=== PATIENT | female | born 1950 | race African-American/Black ===

== ENCOUNTER 2018-05-09 08:37 | Inpatient (IN) ==
[2018-05-09] MEDS ORDERED: LACTULOSE 20 GM/30 ML UDCUP PO PRN (11:54)
[2018-05-09] MEDS ORDERED: MORPHINE 4 MG/1 ML VIAL IV PRN (11:54)
[2018-05-09 13:05] LABS: Risk Ratio 5.56; VLDL CHOLESTEROL 41.2 MG/DL
[2018-05-09] MEDS ORDERED: hydrALAZINE 20 MG/1 ML VIAL IV PRN (13:14)
[2018-05-09] MEDS: CARVEDILOL 12.5 MG TABLET PO SCH ×2 (13:37→21:17)
[2018-05-09] MEDS: ISOSORBIDE MONONITRATE 30 MG TABLET PO SCH (13:37)
[2018-05-09] MEDS: cloNIDine 0.1 MG TABLET PO SCH ×2 (14:00→21:16)
[2018-05-09 14:12] LABS: Basophils # 0.1 10*3/uL (0.0-0.2); Basophils % 0.9 % (0.0-0.8); Eosinophils % 0.3 % (0.00-10.9); Hematocrit 30.2 VOL% (35.7-47.0); Hemoglobin 9.9 GM/DL (12.0-16.0); Immature Granulocytes % 0.3 %; Immature Granulocytes Absolute 0.02 #; Lymphocytes # 3.3 10*3/uL (1.4-4.0); Mean Corpuscular HGB Conc 32.8 GM/DL (32-36); Mean Corpuscular Hemoglobin 28 PG (27-34); Mean Corpuscular Volume 86.8 FL (87-102); Mean Platelet Volume 11.1 FL (9.6-12.0); Monocytes # 0.6 10*3/uL (0.11-0.8); Monocytes % 7.2 % (1.7-12.7); Neutrophils # 3.9 10*3/uL (1.4-7.4); Neutrophils % 49.3 % (38.7-73.9); Platelet Count 281 T/CUMM (130-400); Red Blood Count 3.48 MC/CUMM (3.8-5.5); White Blood Count 7.9 T/CUMM (4-12)
[2018-05-09 14:25] LABS: CKMB % 2.9 %
[2018-05-09 14:26] LABS: Calcium 8.3 MG/DL (8.5-10.1); Osmolality,Calculated 288.7 MOS/KG (273-304); Potassium 4.2 MMOL/L (3.5-5.1)
[2018-05-09 14:27] LABS: Troponin I 1.73 NG/ML (0.00-0.045)
[2018-05-09] MEDS ORDERED: MAGNESIUM SULF RIDER 2 GM in PREMIX 1 EACH IV PRN (14:40)
[2018-05-09] MEDS ORDERED: POTASSIUM CHLORIDE RIDER 10 MEQ in PREMIX 1 EACH IV PRN (14:40)
[2018-05-09] MEDS: ASPIRIN EC 81 MG TABLET PO SCH (15:30)
[2018-05-09] MEDS: SODIUM CHLORIDE 0.9% 1,000 ML IV SCH (18:00)
[2018-05-09] MEDS: hydrALAZINE 20 MG/1 ML VIAL IV PRN (18:00)
[2018-05-09 18:25] LABS: Apearance,Urine Slightly Hazy (Clear); Bilirubin,Urine Negative (Negative); Blood, Urine Small mg/dL (Negative); Glucose,Urine (UA) 150 mg/dL (Negative); Hyaline Casts,Urine 3 /LPF (0-3); Ketones,Urine Negative (Negative); Mucus,Urine Occasional /LPF (Occasional); Nitrite,Urine Negative (Negative); Protein,Urine >=500 MG/DL; RBC,Urine 1 /HPF (0-4); Squamous Epithelial Cell,Urine Occasional /HPF (0-10); Urine Color Yellow (Yellow); Urine Specific Gravity 1.017 (1.001-1.035); Urine Urobilinogen < 2.0 EU/DL (0.2-1.0); WBC,Urine 4 /HPF (0-6)
[2018-05-09] MEDS: ACETAMINOPHEN 325 MG TABLET PO PRN (19:14)
[2018-05-09] MEDS: MIRTAZAPINE 15 MG TABLET PO SCH (21:16)
[2018-05-09] MEDS: ENOXAPARIN 40 MG/0.4 ML SYRINGE SUBCUT SCH (21:17)
[2018-05-10 06:06] LABS: Basophils # 0.1 10*3/uL (0.0-0.2); Basophils % 1.2 % (0.0-0.8); Eosinophils # 0.1 10*3/uL (0.0-0.87); Eosinophils % 2.1 % (0.00-10.9); Hemoglobin 9.5 GM/DL (12.0-16.0); Immature Granulocytes % 0.2 %; Immature Granulocytes Absolute 0.01 #; Lymphocytes # 3.2 10*3/uL (1.4-4.0); Lymphocytes % 47.9 % (21.3-54.2); Mean Corpuscular HGB Conc 31.7 GM/DL (32-36); Mean Corpuscular Hemoglobin 28 PG (27-34); Mean Corpuscular Volume 87.7 FL (87-102); Mean Platelet Volume 11.1 FL (9.6-12.0); Monocytes # 0.6 10*3/uL (0.11-0.8); Monocytes % 9.6 % (1.7-12.7); Neutrophils # 2.6 10*3/uL (1.4-7.4); Platelet Count 266 T/CUMM (130-400); Red Blood Count 3.42 MC/CUMM (3.8-5.5); Red Cell Distribution Width 13.8 % (9.3-17.3); White Blood Count 6.6 T/CUMM (4-12)
[2018-05-10 06:19] LABS: Calcium 8.3 MG/DL (8.5-10.1); Osmolality,Calculated 292.3 MOS/KG (273-304); Potassium 3.7 MMOL/L (3.5-5.1)
[2018-05-10 06:24] LABS: Albumin 2.6 G/DL (3.4-5.0); Calcium 8.4 MG/DL (8.5-10.1); Osmolality,Calculated 290.4 MOS/KG (273-304); Potassium 3.9 MMOL/L (3.5-5.1)
[2018-05-10] MEDS: SODIUM CHLORIDE 0.9% 1,000 ML IV SCH ×2 (06:34→14:47)
[2018-05-10] MEDS ORDERED: diphenhydrAMINE CAP 25 MG CAPSULE PO ONE (07:00)
[2018-05-10] MEDS ORDERED: DIAZEPAM 5 MG TABLET PO ONE (07:00)
[2018-05-10] MEDS: ASPIRIN EC 81 MG TABLET PO SCH (07:07)
[2018-05-10] MEDS: LEVOTHYROXINE 25 MCG TABLET PO SCH (07:07)
[2018-05-10] MEDS ORDERED: SODIUM BICARBONATE 2.4 MEQ/5 ML VIAL ONE (07:08)
[2018-05-10] MEDS ORDERED: LIDOCAINE 1% 20 ML VIAL ONE (07:08)
[2018-05-10] MEDS ORDERED: HEPARIN/NACL 0.9% 2 UNITS/ML 1,000 ML IV ONE (07:08)
[2018-05-10] MEDS ORDERED: MIDAZOLAM 2 MG/2 ML VIAL ONE ×2 (07:36→07:47)
[2018-05-10] MEDS ORDERED: fentaNYL 100 MCG/2 ML VIAL ONE (07:36)
[2018-05-10] MEDS ORDERED: METOPROLOL TARTRATE 5 MG/5 ML VIAL IV ONE (08:05)
[2018-05-10] MEDS ORDERED: hydrALAZINE 20 MG/1 ML VIAL ONE (08:11)
[2018-05-10] MEDS ORDERED: ACETAMINOPHEN/CODEINE 300-30 MG TABLET PO PRN (08:44)
[2018-05-10] MEDS ORDERED: NITROGLYCERIN SL 0.4 MG TABLET SL PRN (08:44)
[2018-05-10] MEDS ORDERED: ZALEPLON 5 MG CAPSULE PO PRN (08:44)
[2018-05-10] MEDS ORDERED: MELOXICAM 7.5 MG TABLET PO SCH (09:00)
[2018-05-10] MEDS ORDERED: LOSARTAN/HCTZ 50-12.5 MG TABLET PO SCH (09:00)
[2018-05-10] MEDS: INSULIN GLARGINE 100 UNIT/ML SUBCUT SCH (09:53)
[2018-05-10] MEDS: cloNIDine 0.1 MG TABLET PO SCH ×3 (11:28→21:37)
[2018-05-10] MEDS: ATORVASTATIN 80 MG TABLET PO SCH (11:28)
[2018-05-10] MEDS: CARVEDILOL 25 MG TABLET PO SCH ×2 (11:28→21:37)
[2018-05-10] MEDS: ESCITALOPRAM 10 MG TABLET PO SCH (11:28)
[2018-05-10] MEDS: EZETIMIBE 10 MG TABLET PO SCH (11:28)
[2018-05-10] MEDS: CLOPIDOGREL 75 MG TABLET PO SCH (11:28)
[2018-05-10] MEDS: ISOSORBIDE MONONITRATE 30 MG TABLET PO SCH (11:29)
[2018-05-10] MEDS ORDERED: POTASSIUM CHLORIDE 20 MEQ TABLET PO PRN (12:26)
[2018-05-10] MEDS: ONDANSETRON 4 MG/2 ML VIAL IV PRN ×2 (15:32→21:41)
[2018-05-10] MEDS: ACETAMINOPHEN 325 MG TABLET PO PRN ×2 (17:38→21:37)
[2018-05-10] MEDS: MIRTAZAPINE 15 MG TABLET PO SCH (21:36)
[2018-05-10] MEDS: ENOXAPARIN 40 MG/0.4 ML SYRINGE SUBCUT SCH (21:41)
[2018-05-10] MEDS: hydrALAZINE 20 MG/1 ML VIAL IV PRN (23:30)
[2018-05-11 01:01] LABS: Basophils % 0.4 % (0.0-0.8); Hemoglobin 10.2 GM/DL (12.0-16.0); Immature Granulocytes % 0.4 %; Immature Granulocytes Absolute 0.04 #; Lymphocytes % 9.2 % (21.3-54.2); Mean Corpuscular HGB Conc 32.9 GM/DL (32-36); Mean Corpuscular Hemoglobin 28 PG (27-34); Mean Corpuscular Volume 86.1 FL (87-102); Mean Platelet Volume 10.7 FL (9.6-12.0); Monocytes # 0.2 10*3/uL (0.11-0.8); Monocytes % 1.4 % (1.7-12.7); Neutrophils # 9.3 10*3/uL (1.4-7.4); Neutrophils % 88.6 % (38.7-73.9); Platelet Count 273 T/CUMM (130-400); Red Cell Distribution Width 13.4 % (9.3-17.3); White Blood Count 10.5 T/CUMM (4-12)
[2018-05-11] MEDS: cloNIDine 0.3 MG/24 HR PATCH TRANSDERM SCH ×2 (01:21→09:14)
[2018-05-11 01:22] LABS: Calcium 8.6 MG/DL (8.5-10.1); Osmolality,Calculated 290.7 MOS/KG (273-304); Potassium 4.4 MMOL/L (3.5-5.1)
[2018-05-11 01:41] LABS: Calcium 8.5 MG/DL (8.5-10.1); Osmolality,Calculated 290.7 MOS/KG (273-304); Potassium 4.3 MMOL/L (3.5-5.1)
[2018-05-11] MEDS ORDERED: LABETALOL 20 MG/4 ML SYRINGE IV ONE (02:09)
[2018-05-11] MEDS: LEVOTHYROXINE 25 MCG TABLET PO SCH (06:54)
[2018-05-11] MEDS ORDERED: SODIUM CHLORIDE 0.9% 500 ML IV ONE (08:17)
[2018-05-11] MEDS: cloNIDine 0.1 MG TABLET PO SCH ×2 (09:09→12:48)
[2018-05-11] MEDS: ISOSORBIDE MONONITRATE 30 MG TABLET PO SCH ×2 (09:10→12:49)
[2018-05-11] MEDS: CARVEDILOL 25 MG TABLET PO SCH ×2 (09:10→12:49)
[2018-05-11] MEDS: INSULIN GLARGINE 100 UNIT/ML SUBCUT SCH (09:12)
[2018-05-11] MEDS: ATORVASTATIN 80 MG TABLET PO SCH ×2 (09:15→12:47)
[2018-05-11] MEDS: EZETIMIBE 10 MG TABLET PO SCH ×2 (09:15→12:48)
[2018-05-11] MEDS: ESCITALOPRAM 10 MG TABLET PO SCH ×2 (09:15→12:48)
[2018-05-11] MEDS: CLOPIDOGREL 75 MG TABLET PO SCH ×2 (09:15→12:49)
[2018-05-11] MEDS: ASPIRIN EC 81 MG TABLET PO SCH ×2 (09:15→12:49)
[2018-05-11] MEDS ORDERED: DEXTROSE 50% 25 GM/50 ML SYRINGE IV PRN (12:05)
[2018-05-11] MEDS ORDERED: GLUCAGON 1 MG VIAL IM PRN (12:05)
[2018-05-11 12:07] VITALS: BP 168/75
[2018-05-11] MEDS: ONDANSETRON 4 MG/2 ML VIAL IV PRN (13:15)
[2018-05-11] MEDS ORDERED: INSULIN LISPRO 100 UNIT/ML SUBCUT SCH (16:30)
== END 2018-05-11 15:40 | disposition home or self-care (01) | DRG 282 ==
LOC: N.TELEN → SUATTDRO 11:54
PROVIDERS: ADMIT Internal Medicine; ATTEND Internal Medicine
PROC: CLCCHCL (ICD-10-PCS; 2018-05-10 07:45)

== ENCOUNTER 2019-07-13 12:30 | Inpatient (IN) ==
[2019-07-13 14:38] LABS: Basophils # 0.1 10*3/uL (0.0-0.2); Basophils % 0.5 % (0.0-0.8); Eosinophils # 0.1 10*3/uL (0.0-0.87); Hematocrit 27.3 VOL% (35.7-47.0); Hemoglobin 8.9 GM/DL (12.0-16.0); Immature Granulocytes % 0.6 %; Immature Granulocytes Absolute 0.09 #; Lymphocytes # 2.2 10*3/uL (1.4-4.0); Lymphocytes % 15.4 % (21.3-54.2); Mean Corpuscular HGB Conc 32.6 GM/DL (32-36); Mean Corpuscular Volume 87.2 FL (87-102); Mean Platelet Volume 11.1 FL (9.6-12.0); Monocytes % 6.4 % (1.7-12.7); Neutrophils % 76.1 % (38.7-73.9); Platelet Count 372 T/CUMM (130-400); Red Blood Count 3.13 MC/CUMM (3.8-5.5); Red Cell Distribution Width 13.3 % (9.3-17.3)
[2019-07-13 15:03] LABS: Alanine Aminotransferase 10 U/L (13-56); Albumin 2.2 G/DL (3.4-5.0); Alkaline Phosphatase 151 U/L (45-117); Aspartate Amino Transferase 15 U/L (0-37); Bilirubin,Total < 0.39 MG/DL (0.2-1.0); Blood Urea Nitrogen 17 MG/DL (7-18); Estimated Glom Filtration Rate 35 ML/MIN; Glucose 94 MG/DL (74-106); Osmolality,Calculated 271.1 MOS/KG (273-304); Total Protein 7.7 G/DL (6.4-8.3)
[2019-07-13] MEDS ORDERED: SODIUM CHLORIDE 0.9% 500 ML IV STA (15:29)
[2019-07-13] MEDS ORDERED: CLINDAMYCIN INJ 900 MG in PREMIX 1 EACH IV ONE (15:51)
[2019-07-13] MEDS ORDERED: ONDANSETRON 4 MG/2 ML VIAL IV PRN ×2 (16:18→18:20)
[2019-07-13] MEDS ORDERED: GLUCAGON 1 MG VIAL IM PRN (16:18)
[2019-07-13] MEDS ORDERED: DEXTROSE 10% 250 ML BAG IV PRN (16:18)
[2019-07-13] MEDS ORDERED: VANCOMYCIN INJ 1,000 MG in SODIUM CHLORIDE 0.9% 250 ML IV SCH (16:30)
[2019-07-13] MEDS ORDERED: CLINDAMYCIN INJ 50 ML IV ONE (16:37)
[2019-07-13] MEDS ORDERED: MIDAZOLAM 2 MG/2 ML VIAL ONE (17:48)
[2019-07-13] MEDS ORDERED: LIDOCAINE 2% 5 ML VIAL ONE (17:48)
[2019-07-13] MEDS ORDERED: propofoL 200 MG/20 ML VIAL IV ONE (17:48)
[2019-07-13] MEDS ORDERED: fentaNYL 100 MCG/2 ML VIAL ONE (17:48)
[2019-07-13] MEDS ORDERED: hydrALAZINE 20 MG/1 ML VIAL ONE (17:49)
[2019-07-13] MEDS ORDERED: HYDROmorphone 2 MG/1 ML VIAL ONE (18:18)
[2019-07-13] MEDS ORDERED: HYDROmorphone 2 MG/1 ML VIAL IV PRN (18:20)
[2019-07-13] MEDS ORDERED: LABETALOL 20 MG/4 ML SYRINGE IV STA (18:30)
[2019-07-13] MEDS ORDERED: ACETAMINOPHEN 325 MG TABLET PO PRN (19:22)
[2019-07-13] MEDS: INSULIN REGULAR 100 UNIT/ML SUBCUT SCH ×2 (21:03→21:04)
[2019-07-13] MEDS: VANCOMYCIN INJ 1,500 MG in SODIUM CHLORIDE 0.9% 500 ML IV SCH (21:37)
[2019-07-13] MEDS: HYDROmorphone 2 MG/1 ML VIAL IV PRN (23:28)
[2019-07-14] MEDS: diphenhydrAMINE CAP 25 MG CAPSULE PO PRN (03:17)
[2019-07-14 07:01] LABS: Basophils # 0.1 10*3/uL (0.0-0.2); Basophils % 0.4 % (0.0-0.8); Eosinophils # 0.2 10*3/uL (0.0-0.87); Eosinophils % 1.5 % (0.00-10.9); Hematocrit 23.8 VOL% (35.7-47.0); Hemoglobin 7.8 GM/DL (12.0-16.0); Immature Granulocytes % 0.4 %; Immature Granulocytes Absolute 0.05 #; Lymphocytes # 2.1 10*3/uL (1.4-4.0); Mean Corpuscular HGB Conc 32.8 GM/DL (32-36); Mean Corpuscular Volume 86.9 FL (87-102); Mean Platelet Volume 11.1 FL (9.6-12.0); Monocytes % 7.2 % (1.7-12.7); Neutrophils % 71.5 % (38.7-73.9); Platelet Count 305 T/CUMM (130-400); Red Blood Count 2.74 MC/CUMM (3.8-5.5); Red Cell Distribution Width 13.7 % (9.3-17.3); White Blood Count 11.2 T/CUMM (4-12)
[2019-07-14 07:25] LABS: Alanine Aminotransferase 9 U/L (13-56); Albumin 1.8 G/DL (3.4-5.0); Alkaline Phosphatase 137 U/L (45-117); Aspartate Amino Transferase 14 U/L (0-37); Bilirubin,Total < 0.39 MG/DL (0.2-1.0); Blood Urea Nitrogen 17 MG/DL (7-18); Calcium 8.4 MG/DL (8.5-10.1); Estimated Glom Filtration Rate 36 ML/MIN; Glucose 76 MG/DL (74-106); Total Protein 6.8 G/DL (6.4-8.3)
[2019-07-14] MEDS: INSULIN REGULAR 100 UNIT/ML SUBCUT SCH ×4 (08:53→20:30)
[2019-07-14] MEDS: PANTOPRAZOLE 40 MG TABLET PO SCH (10:53)
[2019-07-14] MEDS: CLOPIDOGREL 75 MG TABLET PO SCH (13:17)
[2019-07-14] MEDS: ESCITALOPRAM 10 MG TABLET PO SCH (13:17)
[2019-07-14] MEDS: LATANOPROST 0.005% OPH SOLN 2.5 ML BOTTLE BOTH EYES SCH (22:24)
[2019-07-15] MEDS: HYDROmorphone 2 MG/1 ML VIAL IV PRN ×2 (00:09→15:07)
[2019-07-15 04:45] LABS: Basophils # 0.1 10*3/uL (0.0-0.2); Basophils % 0.5 % (0.0-0.8); Eosinophils # 0.2 10*3/uL (0.0-0.87); Eosinophils % 1.8 % (0.00-10.9); Hematocrit 23.4 VOL% (35.7-47.0); Hemoglobin 7.3 GM/DL (12.0-16.0); Immature Granulocytes % 0.4 %; Immature Granulocytes Absolute 0.04 #; Lymphocytes # 2.6 10*3/uL (1.4-4.0); Lymphocytes % 27.2 % (21.3-54.2); Mean Corpuscular HGB Conc 31.2 GM/DL (32-36); Mean Corpuscular Volume 88.6 FL (87-102); Mean Platelet Volume 12.1 FL (9.6-12.0); Monocytes % 6.6 % (1.7-12.7); Neutrophils % 63.5 % (38.7-73.9); Platelet Count 276 T/CUMM (130-400); Red Blood Count 2.64 MC/CUMM (3.8-5.5); Red Cell Distribution Width 13.6 % (9.3-17.3); White Blood Count 9.5 T/CUMM (4-12)
[2019-07-15 05:11] LABS: Calcium 8.5 MG/DL (8.5-10.1)
[2019-07-15 06:49] LABS: Hypochromasia 1+; Platelet Estimate Normal
[2019-07-15] MEDS: INSULIN REGULAR 100 UNIT/ML SUBCUT SCH ×4 (09:01→20:40)
[2019-07-15] MEDS: CLOPIDOGREL 75 MG TABLET PO SCH (09:02)
[2019-07-15] MEDS: LEVOTHYROXINE 50 MCG TABLET PO SCH (09:02)
[2019-07-15] MEDS: ESCITALOPRAM 10 MG TABLET PO SCH (09:02)
[2019-07-15] MEDS: VANCOMYCIN INJ 1,500 MG in SODIUM CHLORIDE 0.9% 500 ML IV SCH (09:03)
[2019-07-15] MEDS: PANTOPRAZOLE 40 MG TABLET PO SCH (09:03)
[2019-07-15] MEDS ORDERED: CLINDAMYCIN INJ 900 MG in PREMIX 1 EACH IV ONE (09:25)
[2019-07-15] MEDS: LATANOPROST 0.005% OPH SOLN 2.5 ML BOTTLE BOTH EYES SCH (20:40)
[2019-07-16 05:13] LABS: Basophils # 0.1 10*3/uL (0.0-0.2); Basophils % 0.8 % (0.0-0.8); Eosinophils # 0.2 10*3/uL (0.0-0.87); Eosinophils % 2.5 % (0.00-10.9); Hematocrit 26.6 VOL% (35.7-47.0); Hemoglobin 8.5 GM/DL (12.0-16.0); Immature Granulocytes % 0.4 %; Immature Granulocytes Absolute 0.04 #; Lymphocytes # 2.5 10*3/uL (1.4-4.0); Mean Corpuscular Volume 87.8 FL (87-102); Mean Platelet Volume 11.1 FL (9.6-12.0); Monocytes % 6.7 % (1.7-12.7); Neutrophils % 61.6 % (38.7-73.9); Platelet Count 368 T/CUMM (130-400); Red Blood Count 3.03 MC/CUMM (3.8-5.5); Red Cell Distribution Width 13.4 % (9.3-17.3); White Blood Count 8.9 T/CUMM (4-12)
[2019-07-16 05:32] LABS: Calcium 8.8 MG/DL (8.5-10.1); Osmolality,Calculated 273.8 MOS/KG (273-304)
[2019-07-16] MEDS ORDERED: CLINDAMYCIN INJ 50 ML IV ONE (07:08)
[2019-07-16] MEDS ORDERED: LIDOCAINE 1% 20 ML VIAL ONE (07:08)
[2019-07-16] MEDS ORDERED: LACTATED RINGERS 1,000 ML IV SCH (07:30)
[2019-07-16] MEDS ORDERED: propofoL 200 MG/20 ML VIAL IV ONE (07:35)
[2019-07-16] MEDS ORDERED: DEXMEDETOMIDINE 200 MCG/2 ML VIAL ONE (07:36)
[2019-07-16] MEDS ORDERED: fentaNYL 100 MCG/2 ML VIAL ONE (07:36)
[2019-07-16] MEDS ORDERED: LIDOCAINE 2% 5 ML VIAL ONE (07:36)
[2019-07-16] MEDS ORDERED: MIDAZOLAM 2 MG/2 ML VIAL ONE (07:36)
[2019-07-16] MEDS: INSULIN REGULAR 100 UNIT/ML SUBCUT SCH ×4 (08:45→21:48)
[2019-07-16] MEDS ORDERED: GLUCAGON 1 MG VIAL IM PRN (09:28)
[2019-07-16] MEDS ORDERED: DEXTROSE 50% 25 GM/50 ML VIAL IV PRN (09:28)
[2019-07-16] MEDS: PANTOPRAZOLE 40 MG TABLET PO SCH (09:31)
[2019-07-16] MEDS: CLOPIDOGREL 75 MG TABLET PO SCH (09:32)
[2019-07-16] MEDS: ESCITALOPRAM 10 MG TABLET PO SCH (09:32)
[2019-07-16] MEDS: LEVOTHYROXINE 50 MCG TABLET PO SCH (09:32)
[2019-07-16] MEDS: HYDROmorphone 2 MG/1 ML VIAL IV PRN (10:50)
[2019-07-16] MEDS: LATANOPROST 0.005% OPH SOLN 2.5 ML BOTTLE BOTH EYES SCH (21:48)
[2019-07-16] MEDS: VANCOMYCIN INJ 1,500 MG in SODIUM CHLORIDE 0.9% 500 ML IV SCH (21:49)
[2019-07-16] MEDS: diphenhydrAMINE CAP 25 MG CAPSULE PO PRN (21:49)
[2019-07-17 05:23] LABS: Basophils # 0.1 10*3/uL (0.0-0.2); Basophils % 0.8 % (0.0-0.8); Eosinophils # 0.2 10*3/uL (0.0-0.87); Hematocrit 25.9 VOL% (35.7-47.0); Hemoglobin 8.5 GM/DL (12.0-16.0); Immature Granulocytes % 0.3 %; Immature Granulocytes Absolute 0.03 #; Lymphocytes # 2.4 10*3/uL (1.4-4.0); Lymphocytes % 25.2 % (21.3-54.2); Mean Corpuscular HGB Conc 32.8 GM/DL (32-36); Mean Corpuscular Volume 86.3 FL (87-102); Mean Platelet Volume 11.4 FL (9.6-12.0); Monocytes % 6.4 % (1.7-12.7); Neutrophils % 65.3 % (38.7-73.9); Platelet Count 342 T/CUMM (130-400); Red Cell Distribution Width 13.7 % (9.3-17.3); White Blood Count 9.7 T/CUMM (4-12)
[2019-07-17] MEDS: HYDROmorphone 2 MG/1 ML VIAL IV PRN (05:31)
[2019-07-17 05:38] LABS: Bilirubin,Total 0.6 MG/DL (0.2-1.0); Calcium 8.2 MG/DL (8.5-10.1); Free T4 (Free Thyroxine) 1.04 NG/DL (0.76-1.46); Osmolality,Calculated 277.5 MOS/KG (273-304); Risk Ratio 4.27; Thyroid Stimulating Hormone 1.48 uIU/ml (0.358-3.74); Total Protein 7.2 G/DL (6.4-8.3); VLDL CHOLESTEROL 23.8 MG/DL
[2019-07-17] MEDS: LEVOTHYROXINE 50 MCG TABLET PO SCH (06:31)
[2019-07-17] MEDS: ESCITALOPRAM 10 MG TABLET PO SCH (08:11)
[2019-07-17] MEDS: PANTOPRAZOLE 40 MG TABLET PO SCH (08:12)
[2019-07-17] MEDS: INSULIN REGULAR 100 UNIT/ML SUBCUT SCH ×4 (08:12→23:16)
[2019-07-17] MEDS: CLOPIDOGREL 75 MG TABLET PO SCH (08:12)
[2019-07-17] MEDS: SODIUM HYPOCHLORITE 0.25% IRRIG 473 ML BOTTLE TOP SCH (15:27)
[2019-07-17] MEDS: LATANOPROST 0.005% OPH SOLN 2.5 ML BOTTLE BOTH EYES SCH (23:19)
[2019-07-18] MEDS: HYDROmorphone 2 MG/1 ML VIAL IV PRN (00:45)
[2019-07-18 05:53] LABS: Basophils # 0.1 10*3/uL (0.0-0.2); Basophils % 0.9 % (0.0-0.8); Eosinophils # 0.1 10*3/uL (0.0-0.87); Eosinophils % 1.7 % (0.00-10.9); Hematocrit 23.6 VOL% (35.7-47.0); Hemoglobin 7.7 GM/DL (12.0-16.0); Immature Granulocytes % 0.4 %; Immature Granulocytes Absolute 0.03 #; Lymphocytes # 2.4 10*3/uL (1.4-4.0); Lymphocytes % 29.3 % (21.3-54.2); Mean Corpuscular HGB Conc 32.6 GM/DL (32-36); Mean Corpuscular Volume 87.4 FL (87-102); Mean Platelet Volume 11.4 FL (9.6-12.0); Monocytes % 7.7 % (1.7-12.7); Platelet Count 329 T/CUMM (130-400); White Blood Count 8.2 T/CUMM (4-12)
[2019-07-18 06:23] LABS: Alanine Aminotransferase 12 U/L (13-56); Alkaline Phosphatase 147 U/L (45-117); Aspartate Amino Transferase 19 U/L (0-37); Bilirubin,Total < 0.39 MG/DL (0.2-1.0); Blood Urea Nitrogen 17 MG/DL (7-18); Calcium 8.5 MG/DL (8.5-10.1); Estimated Glom Filtration Rate 31 ML/MIN; Glucose 87 MG/DL (74-106); Osmolality,Calculated 281.3 MOS/KG (273-304)
[2019-07-18] MEDS ORDERED: IRON SUCROSE 300 MG in SODIUM CHLORIDE 0.9% 100 ML IV ONE (07:02)
[2019-07-18] MEDS ORDERED: SODIUM CHLORIDE 0.9% 1,000 ML IV PRN (07:03)
[2019-07-18] MEDS: LEVOTHYROXINE 50 MCG TABLET PO SCH (07:14)
[2019-07-18] MEDS: INSULIN REGULAR 100 UNIT/ML SUBCUT SCH ×2 (09:03→12:30)
[2019-07-18] MEDS: PANTOPRAZOLE 40 MG TABLET PO SCH (09:06)
[2019-07-18] MEDS: CLOPIDOGREL 75 MG TABLET PO SCH (09:07)
[2019-07-18] MEDS: ESCITALOPRAM 10 MG TABLET PO SCH (09:08)
[2019-07-18] MEDS: SODIUM HYPOCHLORITE 0.25% IRRIG 473 ML BOTTLE TOP SCH (09:08)
[2019-07-18 11:50] LABS: Hematocrit 27.2 VOL% (35.7-47.0)
[2019-07-18 12:28] VITALS: BP 181/67
== END 2019-07-18 13:38 | disposition home health service (06) | DRG 629 ==
LOC: N.ED 12:30 → SUATTDRO 15:46 → N.EDINP 15:46 → N.3E 19:17
PROVIDERS: ADMIT Internal Medicine; ATTEND Internal Medicine

== ENCOUNTER 2019-11-24 12:36 | Inpatient (IN) ==
[2019-11-24] MEDS ORDERED: LABETALOL 20 MG/4 ML SYRINGE IV ONE (13:01)
[2019-11-24] MEDS ORDERED: LABETALOL 100 MG/20 ML VIAL IV STA (13:21)
[2019-11-24 13:40] LABS: Basophils % 0.4 % (0.0-0.8); Eosinophils % 0.3 % (0.00-10.9); Hematocrit 31.1 VOL% (35.7-47.0); Hemoglobin 9.1 GM/DL (12.0-16.0); Immature Granulocytes % 0.7 %; Immature Granulocytes Absolute 0.06 #; Lymphocytes # 0.3 10*3/uL (1.4-4.0); Lymphocytes % 3.7 % (21.3-54.2); Mean Corpuscular HGB Conc 29.3 GM/DL (32-36); Mean Corpuscular Volume 87.6 FL (87-102); Mean Platelet Volume 10.5 FL (9.6-12.0); Monocytes % 2.6 % (1.7-12.7); Neutrophils % 92.3 % (38.7-73.9); Platelet Count 233 T/CUMM (130-400); Red Blood Count 3.55 MC/CUMM (3.8-5.5); Red Cell Distribution Width 13.3 % (9.3-17.3); White Blood Count 9.1 T/CUMM (4-12)
[2019-11-24 13:52] LABS: Calcium 8.4 MG/DL (8.5-10.1); Osmolality,Calculated 281.2 MOS/KG (273-304)
[2019-11-24 14:03] LABS: PT Patient Result 10.6 SECS (9.8-11.9); Partial Thromboplastin Time 21.1 SECS (23.9-33.8)
[2019-11-24 14:07] LABS: Lymphocytes 2 % (20-55); Segmented Neutrophils 97 % (50-85); Total Cells Counted 100
[2019-11-24] MEDS ORDERED: FUROSEMIDE 40 MG/4 ML VIAL ONE (14:53)
[2019-11-24] MEDS ORDERED: FUROSEMIDE 40 MG/4 ML VIAL IV STA ×3 (14:53→16:12)
[2019-11-24] MEDS ORDERED: niCARdipine 25 MG/10 ML VIAL IV ONE (15:18)
[2019-11-24] MEDS: niCARdipine INJ 25 MG in SODIUM CHLORIDE 0.9% 240 ML IV PRN ×3 (15:32→20:01)
[2019-11-24] MEDS ORDERED: hydrALAZINE 20 MG/1 ML VIAL IV STA (16:06)
[2019-11-24] MEDS ORDERED: ONDANSETRON 4 MG/2 ML VIAL IV PRN (16:07)
[2019-11-24] MEDS ORDERED: ALBUTEROL 2.5 MG/3 ML NEB RESP TX PRN (16:07)
[2019-11-24] MEDS ORDERED: PROMETHAZINE 25 MG/1 ML VIAL IM PRN (16:07)
[2019-11-24 16:56] LABS: ABG Base Excess -3.5 MMOL/L (-2.5-2.5); ABG HCO3 21.3 MMOL/L (20-26); ABG Oxygen Saturation 89.4 % (95-100); ABG PCO2 28.7 MM HG (35-48); ABG PH 7.444 (7.35-7.45); ABG PO2 57.9 MM HG (80-95); ABG TCO2 18.1 MMOL/L (23-27)
[2019-11-24] MEDS: carvediloL 6.25 MG TABLET PO SCH ×2 (17:26→22:15)
[2019-11-24] MEDS: cloNIDine 0.1 MG TABLET PO SCH ×2 (17:26→22:15)
[2019-11-24] MEDS: PANTOPRAZOLE 40 MG VIAL IV SCH (17:28)
[2019-11-24] MEDS ORDERED: GLUCAGON 1 MG VIAL IM PRN (17:29)
[2019-11-24] MEDS ORDERED: DEXTROSE 50% 25 GM/50 ML VIAL IV PRN (17:29)
[2019-11-24] MEDS ORDERED: SODIUM BICARBONATE 50 MEQ/50 ML VIAL IV ONE (17:56)
[2019-11-24] MEDS: methylPREDNISolone SOD SUC 125 MG/2 ML VIAL IV SCH (18:30)
[2019-11-24] MEDS: INSULIN REGULAR 100 UNIT/ML SUBCUT SCH (18:30)
[2019-11-24] MEDS: ENOXAPARIN 80 MG/0.8 ML SYRINGE SUBCUT SCH (18:30)
[2019-11-24 18:33] LABS: Ferritin 538.1 ng/ml (8-252)
[2019-11-24] MEDS ORDERED: ALBUTEROL/IPRATROPIUM 3 ML NEB RESP TX SCH (19:00)
[2019-11-24] MEDS: ALBUTEROL/IPRATROPIUM 3 ML NEB RESP TX SCH (19:32)
[2019-11-24] MEDS: LATANOPROST 0.005% OPH SOLN 2.5 ML BOTTLE BOTH EYES SCH (22:16)
[2019-11-24] MEDS: niCARdipine INJ 50 MG in SODIUM CHLORIDE 0.9% 480 ML IV PRN (23:01)
[2019-11-25] MEDS: INSULIN REGULAR 100 UNIT/ML SUBCUT SCH ×5 (00:17→23:39)
[2019-11-25] MEDS: methylPREDNISolone SOD SUC 125 MG/2 ML VIAL IV SCH ×5 (00:18→23:39)
[2019-11-25] MEDS: ALBUTEROL/IPRATROPIUM 3 ML NEB RESP TX SCH ×4 (01:57→19:34)
[2019-11-25 04:47] LABS: Basophils % 0.1 % (0.0-0.8); Hematocrit 25.3 VOL% (35.7-47.0); Hemoglobin 8.5 GM/DL (12.0-16.0); Immature Granulocytes % 0.4 %; Immature Granulocytes Absolute 0.04 #; Lymphocytes # 0.5 10*3/uL (1.4-4.0); Lymphocytes % 5.8 % (21.3-54.2); Mean Corpuscular HGB Conc 33.6 GM/DL (32-36); Mean Corpuscular Volume 85.8 FL (87-102); Mean Platelet Volume 11.1 FL (9.6-12.0); Monocytes % 0.9 % (1.7-12.7); Neutrophils % 92.8 % (38.7-73.9); Platelet Count 235 T/CUMM (130-400); Red Blood Count 2.95 MC/CUMM (3.8-5.5); Red Cell Distribution Width 13.7 % (9.3-17.3); White Blood Count 9.3 T/CUMM (4-12)
[2019-11-25 05:36] LABS: Lymphocytes 4 % (20-55); Segmented Neutrophils 95 % (50-85)
[2019-11-25 05:37] LABS: Platelet Estimate Normal; Total Cells Counted 100
[2019-11-25] MEDS: niCARdipine INJ 50 MG in SODIUM CHLORIDE 0.9% 480 ML IV PRN (05:59)
[2019-11-25 06:39] LABS: Albumin 2.2 G/DL (3.4-5.0); Bilirubin,Total 0.6 MG/DL (0.2-1.0); Calcium 8.6 MG/DL (8.5-10.1); Osmolality,Calculated 291.8 MOS/KG (273-304); Risk Ratio 4.87; VLDL CHOLESTEROL 15.2 MG/DL
[2019-11-25] MEDS ORDERED: POTASSIUM CHLORIDE 20 MEQ TABLET PO ONE (08:00)
[2019-11-25] MEDS: carvediloL 6.25 MG TABLET PO SCH (09:53)
[2019-11-25] MEDS: LEVOTHYROXINE 50 MCG TABLET PO SCH (09:53)
[2019-11-25] MEDS: cloNIDine 0.1 MG TABLET PO SCH ×3 (09:53→20:12)
[2019-11-25] MEDS: CLOPIDOGREL 75 MG TABLET PO SCH (09:53)
[2019-11-25] MEDS: DOXYCYCLINE HYCLATE 100 MG CAPSULE PO SCH ×2 (14:20→20:12)
[2019-11-25] MEDS: PANTOPRAZOLE 40 MG VIAL IV SCH (16:47)
[2019-11-25] MEDS: ENOXAPARIN 80 MG/0.8 ML SYRINGE SUBCUT SCH (17:40)
[2019-11-25] MEDS ORDERED: ALBUTEROL INHALER 18 GM INH SCH (19:00)
[2019-11-25] MEDS: LATANOPROST 0.005% OPH SOLN 2.5 ML BOTTLE BOTH EYES SCH (21:34)
[2019-11-26] MEDS: ALBUTEROL/IPRATROPIUM 3 ML NEB RESP TX SCH ×4 (01:58→20:23)
[2019-11-26 03:55] LABS: ABG Base Excess -4.5 MMOL/L (-2.5-2.5); ABG HCO3 19.1 MMOL/L (20-26); ABG PCO2 29.7 MM HG (35-48); ABG PH 7.427 (7.35-7.45); ABG PO2 95.4 MM HG (80-95)
[2019-11-26] MEDS: INSULIN REGULAR 100 UNIT/ML SUBCUT SCH ×3 (05:52→17:25)
[2019-11-26] MEDS: methylPREDNISolone SOD SUC 125 MG/2 ML VIAL IV SCH ×3 (05:52→21:05)
[2019-11-26 07:27] LABS: Basophils % 0.1 % (0.0-0.8); Hematocrit 23.8 VOL% (35.7-47.0); Immature Granulocytes % 0.2 %; Immature Granulocytes Absolute 0.04 #; Lymphocytes # 0.6 10*3/uL (1.4-4.0); Lymphocytes % 3.4 % (21.3-54.2); Mean Corpuscular HGB Conc 33.6 GM/DL (32-36); Mean Corpuscular Volume 85.6 FL (87-102); Mean Platelet Volume 11.2 FL (9.6-12.0); Monocytes % 1.8 % (1.7-12.7); Neutrophils % 94.5 % (38.7-73.9); Platelet Count 232 T/CUMM (130-400); Red Blood Count 2.78 MC/CUMM (3.8-5.5); Red Cell Distribution Width 13.7 % (9.3-17.3); White Blood Count 16.5 T/CUMM (4-12)
[2019-11-26 07:58] LABS: Calcium 8.2 MG/DL (8.5-10.1); Osmolality,Calculated 290.4 MOS/KG (273-304)
[2019-11-26] MEDS: DOXYCYCLINE HYCLATE 100 MG CAPSULE PO SCH (08:07)
[2019-11-26] MEDS: cloNIDine 0.1 MG TABLET PO SCH ×3 (08:08→21:02)
[2019-11-26] MEDS: LEVOTHYROXINE 50 MCG TABLET PO SCH (08:08)
[2019-11-26] MEDS: METOPROLOL SUCCINATE XL 100 MG TABLET PO SCH (08:08)
[2019-11-26] MEDS: CLOPIDOGREL 75 MG TABLET PO SCH (08:08)
[2019-11-26 08:10] LABS: Band Neutrophils 9 % (0-10); Lymphocytes 4 % (20-55); Platelet Estimate Normal; Segmented Neutrophils 86 % (50-85); Total Cells Counted 100
[2019-11-26 08:11] LABS: Anisocytosis 2+
[2019-11-26] MEDS ORDERED: VANCOMYCIN INJ 1,500 MG in SODIUM CHLORIDE 0.9% 500 ML IV ONE (11:30)
[2019-11-26] MEDS: ENOXAPARIN 80 MG/0.8 ML SYRINGE SUBCUT SCH (17:25)
[2019-11-26] MEDS: PANTOPRAZOLE 40 MG VIAL IV SCH (17:25)
[2019-11-26] MEDS: LATANOPROST 0.005% OPH SOLN 2.5 ML BOTTLE BOTH EYES SCH (22:49)
[2019-11-27] MEDS ORDERED: diphenhydrAMINE CAP 25 MG CAPSULE ONE (00:26)
[2019-11-27] MEDS: INSULIN REGULAR 100 UNIT/ML SUBCUT SCH ×4 (00:34→17:10)
[2019-11-27] MEDS: diphenhydrAMINE CAP 25 MG CAPSULE PO PRN (00:34)
[2019-11-27] MEDS: ALBUTEROL/IPRATROPIUM 3 ML NEB RESP TX SCH ×4 (00:36→19:46)
[2019-11-27] MEDS: methylPREDNISolone SOD SUC 125 MG/2 ML VIAL IV SCH (04:23)
[2019-11-27] MEDS: LEVOTHYROXINE 50 MCG TABLET PO SCH ×2 (06:25→08:20)
[2019-11-27 06:41] LABS: Hematocrit 23.5 VOL% (35.7-47.0); Hemoglobin 7.7 GM/DL (12.0-16.0); Immature Granulocytes % 0.5 %; Immature Granulocytes Absolute 0.07 #; Lymphocytes # 0.6 10*3/uL (1.4-4.0); Lymphocytes % 4.2 % (21.3-54.2); Mean Corpuscular HGB Conc 32.8 GM/DL (32-36); Mean Corpuscular Volume 87.7 FL (87-102); Monocytes % 1.7 % (1.7-12.7); Neutrophils % 93.6 % (38.7-73.9); Platelet Count 219 T/CUMM (130-400); Red Blood Count 2.68 MC/CUMM (3.8-5.5); Red Cell Distribution Width 13.8 % (9.3-17.3); White Blood Count 13.3 T/CUMM (4-12)
[2019-11-27 06:59] LABS: Calcium 8.3 MG/DL (8.5-10.1); Osmolality,Calculated 299.4 MOS/KG (273-304)
[2019-11-27 07:46] LABS: Band Neutrophils 1 % (0-10); Lymphocytes 3 % (20-55); Platelet Estimate Normal; Segmented Neutrophils 96 % (50-85); Total Cells Counted 100
[2019-11-27 07:47] LABS: Anisocytosis 1+; Macrocytosis 1+
[2019-11-27] MEDS: CLOPIDOGREL 75 MG TABLET PO SCH (08:22)
[2019-11-27] MEDS: cloNIDine 0.1 MG TABLET PO SCH ×3 (08:22→22:10)
[2019-11-27] MEDS: METOPROLOL SUCCINATE XL 100 MG TABLET PO SCH (08:22)
[2019-11-27] MEDS ORDERED: VANCOMYCIN INJ 1,500 MG in SODIUM CHLORIDE 0.9% 500 ML IV PRN (08:33)
[2019-11-27 11:39] LABS: Apearance,Urine Slightly Hazy (Clear); Bilirubin,Urine Negative (Negative); Blood, Urine Negative (Negative); Glucose,Urine (UA) 50 mg/dL (Negative); Hyaline Casts,Urine 3 /LPF (0-3); Ketones,Urine Negative (Negative); Mucus,Urine Occasional /LPF (Occasional); Nitrite,Urine Negative (Negative); Protein,Urine 100 MG/DL; RBC,Urine 5 /HPF (0-4); Squamous Epithelial Cell,Urine Occasional /HPF (0-10); Urine Color Yellow (Yellow); Urine Specific Gravity 1.015 (1.001-1.035); Urine Urobilinogen < 2.0 EU/DL (0.2-1.0); WBC,Urine 2 /HPF (0-6)
[2019-11-27] MEDS: methylPREDNISolone SOD SUC 40 MG/1 ML VIAL IV SCH ×2 (12:02→22:09)
[2019-11-27] MEDS: PANTOPRAZOLE 40 MG VIAL IV SCH (15:36)
[2019-11-27] MEDS: BISACODYL 5 MG TABLET PO PRN (17:10)
[2019-11-27] MEDS: LATANOPROST 0.005% OPH SOLN 2.5 ML BOTTLE BOTH EYES SCH (22:10)
[2019-11-28] MEDS: ALBUTEROL/IPRATROPIUM 3 ML NEB RESP TX SCH ×4 (01:06→20:43)
[2019-11-28] MEDS: INSULIN REGULAR 100 UNIT/ML SUBCUT SCH ×4 (01:26→18:35)
[2019-11-28] MEDS: methylPREDNISolone SOD SUC 40 MG/1 ML VIAL IV SCH ×3 (04:44→22:07)
[2019-11-28 06:18] LABS: Hematocrit 22.5 VOL% (35.7-47.0); Hemoglobin 7.5 GM/DL (12.0-16.0); Immature Granulocytes % 0.6 %; Immature Granulocytes Absolute 0.07 #; Lymphocytes # 0.7 10*3/uL (1.4-4.0); Lymphocytes % 6.6 % (21.3-54.2); Mean Corpuscular HGB Conc 33.3 GM/DL (32-36); Mean Corpuscular Volume 86.9 FL (87-102); Mean Platelet Volume 11.9 FL (9.6-12.0); Monocytes % 2.2 % (1.7-12.7); Neutrophils % 90.6 % (38.7-73.9); Platelet Count 224 T/CUMM (130-400); Red Blood Count 2.59 MC/CUMM (3.8-5.5); Red Cell Distribution Width 13.6 % (9.3-17.3); White Blood Count 11.1 T/CUMM (4-12)
[2019-11-28 06:39] LABS: Hypochromasia 2+; Lymphocytes 9 % (20-55); Ovalocytes Slight; Platelet Estimate Adequate; Segmented Neutrophils 90 % (50-85); Total Cells Counted 100
[2019-11-28 06:46] LABS: Calcium 8.1 MG/DL (8.5-10.1); Osmolality,Calculated 304.2 MOS/KG (273-304)
[2019-11-28] MEDS ORDERED: SODIUM CHLORIDE 0.9% 1,000 ML IV SCH (08:30)
[2019-11-28] MEDS: cloNIDine 0.1 MG TABLET PO SCH ×3 (09:54→22:07)
[2019-11-28] MEDS: METOPROLOL SUCCINATE XL 100 MG TABLET PO SCH (09:55)
[2019-11-28] MEDS: LEVOTHYROXINE 50 MCG TABLET PO SCH (09:57)
[2019-11-28] MEDS ORDERED: VANCOMYCIN INJ 1,500 MG in SODIUM CHLORIDE 0.9% 500 ML IV ONE (12:00)
[2019-11-28] MEDS: PANTOPRAZOLE 40 MG VIAL IV SCH (16:51)
[2019-11-28] MEDS: LATANOPROST 0.005% OPH SOLN 2.5 ML BOTTLE BOTH EYES SCH (22:08)
[2019-11-29] MEDS: INSULIN REGULAR 100 UNIT/ML SUBCUT SCH ×4 (00:40→17:32)
[2019-11-29] MEDS: ALBUTEROL/IPRATROPIUM 3 ML NEB RESP TX SCH ×4 (01:24→19:07)
[2019-11-29] MEDS: methylPREDNISolone SOD SUC 40 MG/1 ML VIAL IV SCH ×3 (05:00→21:08)
[2019-11-29 05:49] LABS: Hematocrit 21.8 VOL% (35.7-47.0); Hemoglobin 7.3 GM/DL (12.0-16.0); Immature Granulocytes % 0.8 %; Immature Granulocytes Absolute 0.07 #; Lymphocytes # 0.6 10*3/uL (1.4-4.0); Lymphocytes % 7.3 % (21.3-54.2); Mean Corpuscular HGB Conc 33.5 GM/DL (32-36); Mean Corpuscular Volume 85.8 FL (87-102); Mean Platelet Volume 12.2 FL (9.6-12.0); Monocytes % 3.7 % (1.7-12.7); Neutrophils % 88.2 % (38.7-73.9); Platelet Count 214 T/CUMM (130-400); Red Blood Count 2.54 MC/CUMM (3.8-5.5); Red Cell Distribution Width 13.4 % (9.3-17.3); White Blood Count 8.6 T/CUMM (4-12)
[2019-11-29 08:50] LABS: Calcium 8.2 MG/DL (8.5-10.1); Osmolality,Calculated 308.2 MOS/KG (273-304)
[2019-11-29] MEDS: cloNIDine 0.1 MG TABLET PO SCH ×3 (10:16→21:14)
[2019-11-29] MEDS: LEVOTHYROXINE 50 MCG TABLET PO SCH (10:17)
[2019-11-29] MEDS: METOPROLOL SUCCINATE XL 100 MG TABLET PO SCH (10:17)
[2019-11-29] MEDS ORDERED: SODIUM CHLORIDE 0.9% 1,000 ML IV PRN (10:34)
[2019-11-29] MEDS ORDERED: FUROSEMIDE 20 MG/2 ML VIAL IV ONE (14:00)
[2019-11-29] MEDS ORDERED: GLUCAGON 1 MG VIAL IM PRN (14:10)
[2019-11-29] MEDS ORDERED: DEXTROSE 50% 25 GM/50 ML VIAL IV PRN (14:10)
[2019-11-29] MEDS: PANTOPRAZOLE 40 MG VIAL IV SCH (16:18)
[2019-11-29 20:29] LABS: Hematocrit 30.3 VOL% (35.7-47.0); Hemoglobin 10.2 GM/DL (12.0-16.0)
[2019-11-29] MEDS: BISACODYL 5 MG TABLET PO PRN (21:08)
[2019-11-29] MEDS: LATANOPROST 0.005% OPH SOLN 2.5 ML BOTTLE BOTH EYES SCH (21:14)
[2019-11-30] MEDS: INSULIN REGULAR 100 UNIT/ML SUBCUT SCH ×4 (00:56→18:00)
[2019-11-30] MEDS: ALBUTEROL/IPRATROPIUM 3 ML NEB RESP TX SCH ×4 (01:42→19:40)
[2019-11-30] MEDS: methylPREDNISolone SOD SUC 40 MG/1 ML VIAL IV SCH ×3 (04:39→21:09)
[2019-11-30 08:45] LABS: Basophils % 0.1 % (0.0-0.8); Eosinophils # 0.2 10*3/uL (0.0-0.87); Eosinophils % 0.9 % (0.00-10.9); Hematocrit 32.5 VOL% (35.7-47.0); Hemoglobin 11.1 GM/DL (12.0-16.0); Immature Granulocytes % 1.2 %; Lymphocytes # 3.3 10*3/uL (1.4-4.0); Lymphocytes % 19.2 % (21.3-54.2); Mean Corpuscular HGB Conc 34.2 GM/DL (32-36); Mean Corpuscular Volume 84.6 FL (87-102); Mean Platelet Volume 11.2 FL (9.6-12.0); Monocytes % 6.9 % (1.7-12.7); Neutrophils % 71.7 % (38.7-73.9); Platelet Count 262 T/CUMM (130-400); Red Blood Count 3.84 MC/CUMM (3.8-5.5); Red Cell Distribution Width 14.7 % (9.3-17.3); White Blood Count 17.2 T/CUMM (4-12)
[2019-11-30 09:07] LABS: Calcium 8.5 MG/DL (8.5-10.1)
[2019-11-30] MEDS ORDERED: VANCOMYCIN INJ 1,500 MG in SODIUM CHLORIDE 0.9% 500 ML IV ONE (13:00)
[2019-11-30] MEDS ORDERED: LIDOCAINE 2% 5 ML VIAL ONE (13:01)
[2019-11-30] MEDS ORDERED: propofoL 200 MG/20 ML VIAL IV ONE (13:01)
[2019-11-30] MEDS ORDERED: ETOMIDATE 40 MG/20 ML VIAL IV ONE (13:01)
[2019-11-30] MEDS: SODIUM CHLORIDE 0.9% 1,000 ML IV SCH (13:38)
[2019-11-30] MEDS: POLYETHYLENE GLYCOL POWDER 17 GM PACK PO SCH (14:21)
[2019-11-30] MEDS: cloNIDine 0.1 MG TABLET PO SCH ×3 (14:21→21:09)
[2019-11-30] MEDS: LEVOTHYROXINE 50 MCG TABLET PO SCH (14:22)
[2019-11-30] MEDS: METOPROLOL SUCCINATE XL 100 MG TABLET PO SCH (14:22)
[2019-11-30] MEDS: PANTOPRAZOLE 40 MG VIAL IV SCH (18:00)
[2019-11-30] MEDS: diphenhydrAMINE CAP 25 MG CAPSULE PO PRN (21:21)
[2019-12-01] MEDS: INSULIN REGULAR 100 UNIT/ML SUBCUT SCH ×5 (00:28→23:31)
[2019-12-01] MEDS: LATANOPROST 0.005% OPH SOLN 2.5 ML BOTTLE BOTH EYES SCH ×2 (00:28→21:49)
[2019-12-01] MEDS: ALBUTEROL/IPRATROPIUM 3 ML NEB RESP TX SCH ×4 (01:15→19:20)
[2019-12-01] MEDS: methylPREDNISolone SOD SUC 40 MG/1 ML VIAL IV SCH ×3 (04:51→20:27)
[2019-12-01] MEDS: hydrALAZINE 20 MG/1 ML VIAL IV PRN (05:21)
[2019-12-01] MEDS: cloNIDine 0.1 MG TABLET PO PRN (06:40)
[2019-12-01] MEDS: POLYETHYLENE GLYCOL POWDER 17 GM PACK PO SCH (08:40)
[2019-12-01] MEDS: cloNIDine 0.1 MG TABLET PO SCH ×3 (09:07→21:48)
[2019-12-01] MEDS: LEVOTHYROXINE 50 MCG TABLET PO SCH (09:07)
[2019-12-01] MEDS: METOPROLOL SUCCINATE XL 100 MG TABLET PO SCH (09:07)
[2019-12-01] MEDS: SODIUM CHLORIDE 0.9% 1,000 ML IV SCH (14:19)
[2019-12-01] MEDS: PANTOPRAZOLE 40 MG VIAL IV SCH (16:20)
[2019-12-02] MEDS: ALBUTEROL/IPRATROPIUM 3 ML NEB RESP TX SCH ×4 (01:09→19:22)
[2019-12-02] MEDS: methylPREDNISolone SOD SUC 40 MG/1 ML VIAL IV SCH ×2 (04:36→12:20)
[2019-12-02] MEDS: INSULIN REGULAR 100 UNIT/ML SUBCUT SCH ×3 (05:36→17:46)
[2019-12-02] MEDS: METOPROLOL SUCCINATE XL 100 MG TABLET PO SCH (08:48)
[2019-12-02] MEDS: cloNIDine 0.1 MG TABLET PO SCH ×3 (08:48→22:02)
[2019-12-02] MEDS: LEVOTHYROXINE 50 MCG TABLET PO SCH (08:48)
[2019-12-02] MEDS: POLYETHYLENE GLYCOL POWDER 17 GM PACK PO SCH (08:48)
[2019-12-02] MEDS: SODIUM CHLORIDE 0.9% 1,000 ML IV SCH (13:50)
[2019-12-02] MEDS: PANTOPRAZOLE 40 MG VIAL IV SCH (15:47)
[2019-12-02] MEDS: ACETAMINOPHEN 325 MG TABLET PO PRN (18:24)
[2019-12-02] MEDS ORDERED: VANCOMYCIN INJ 1,500 MG in SODIUM CHLORIDE 0.9% 500 ML IV ONE (21:00)
[2019-12-02] MEDS: LATANOPROST 0.005% OPH SOLN 2.5 ML BOTTLE BOTH EYES SCH (22:04)
[2019-12-02] MEDS: diphenhydrAMINE CAP 25 MG CAPSULE PO PRN (22:26)
[2019-12-03] MEDS ORDERED: methylPREDNISolone SOD SUC 40 MG/1 ML VIAL IV SCH
[2019-12-03] MEDS: ALBUTEROL/IPRATROPIUM 3 ML NEB RESP TX SCH ×4 (00:44→19:02)
[2019-12-03] MEDS: INSULIN REGULAR 100 UNIT/ML SUBCUT SCH ×5 (01:06→23:58)
[2019-12-03] MEDS: hydrALAZINE 20 MG/1 ML VIAL IV PRN (05:03)
[2019-12-03 06:50] LABS: Calcium 8.6 MG/DL (8.5-10.1); Osmolality,Calculated 304.4 MOS/KG (273-304)
[2019-12-03 08:40] LABS: Basophils % 0.1 % (0.0-0.8); Eosinophils % 0.1 % (0.00-10.9); Hematocrit 33.8 VOL% (35.7-47.0); Hemoglobin 11.2 GM/DL (12.0-16.0); Immature Granulocytes % 1.2 %; Immature Granulocytes Absolute 0.18 #; Lymphocytes % 6.1 % (21.3-54.2); Mean Corpuscular HGB Conc 33.1 GM/DL (32-36); Mean Corpuscular Volume 87.1 FL (87-102); Neutrophils % 88.5 % (38.7-73.9); Platelet Count 304 T/CUMM (130-400); Red Blood Count 3.88 MC/CUMM (3.8-5.5); Red Cell Distribution Width 14.8 % (9.3-17.3); White Blood Count 15.7 T/CUMM (4-12)
[2019-12-03] MEDS: LEVOTHYROXINE 50 MCG TABLET PO SCH (09:09)
[2019-12-03] MEDS: METOPROLOL SUCCINATE XL 100 MG TABLET PO SCH (09:09)
[2019-12-03] MEDS: cloNIDine 0.1 MG TABLET PO SCH ×3 (09:10→20:42)
[2019-12-03] MEDS: ACETAMINOPHEN 325 MG TABLET PO PRN (09:13)
[2019-12-03] MEDS: POLYETHYLENE GLYCOL POWDER 17 GM PACK PO SCH (09:14)
[2019-12-03] MEDS ORDERED: TUBERCULIN SKIN TEST 0.1 ML SYRINGE INTRADERM ONE (14:28)
[2019-12-03] MEDS: PANTOPRAZOLE 40 MG VIAL IV SCH (15:56)
[2019-12-03] MEDS: SODIUM CHLORIDE 0.9% 1,000 ML IV SCH (17:27)
[2019-12-03] MEDS: cloNIDine 0.1 MG TABLET PO PRN (17:58)
[2019-12-03] MEDS: LATANOPROST 0.005% OPH SOLN 2.5 ML BOTTLE BOTH EYES SCH (20:42)
[2019-12-04] MEDS: ALBUTEROL/IPRATROPIUM 3 ML NEB RESP TX SCH ×4 (00:04→19:39)
[2019-12-04] MEDS: INSULIN REGULAR 100 UNIT/ML SUBCUT SCH ×4 (06:13→23:44)
[2019-12-04] MEDS: SODIUM CHLORIDE 0.9% 1,000 ML IV SCH ×2 (08:06→13:20)
[2019-12-04 08:15] LABS: Calcium 8.2 MG/DL (8.5-10.1); Osmolality,Calculated 303.5 MOS/KG (273-304)
[2019-12-04] MEDS ORDERED: propofoL 200 MG/20 ML VIAL IV ONE (09:00)
[2019-12-04] MEDS ORDERED: predniSONE 20 MG TABLET PO SCH (09:00)
[2019-12-04] MEDS ORDERED: LIDOCAINE 100 MG/5 ML SYRINGE ONE (09:00)
[2019-12-04] MEDS ORDERED: BISACODYL 5 MG TABLET PO ONE (12:00)
[2019-12-04] MEDS ORDERED: DEXTROSE 50% 25 GM/50 ML VIAL IV PRN (12:28)
[2019-12-04] MEDS: POLYETHYLENE GLYCOL POWDER 17 GM PACK PO SCH (12:34)
[2019-12-04] MEDS: METOPROLOL SUCCINATE XL 100 MG TABLET PO SCH (12:39)
[2019-12-04] MEDS: LEVOTHYROXINE 50 MCG TABLET PO SCH (12:39)
[2019-12-04] MEDS: cloNIDine 0.1 MG TABLET PO SCH ×3 (12:40→20:31)
[2019-12-04] MEDS: PANTOPRAZOLE 40 MG VIAL IV SCH (15:53)
[2019-12-04] MEDS ORDERED: POLYETHYLENE GLYCOL POWDER 255 GM BOTTLE PO ONE (18:00)
[2019-12-04] MEDS: LATANOPROST 0.005% OPH SOLN 2.5 ML BOTTLE BOTH EYES SCH (20:31)
[2019-12-04] MEDS ORDERED: DOXAZOSIN 1 MG TABLET PO SCH ×2 (21:00)
[2019-12-05] MEDS: ALBUTEROL/IPRATROPIUM 3 ML NEB RESP TX SCH ×4 (01:00→20:33)
[2019-12-05 05:33] LABS: Basophils % 0.1 % (0.0-0.8); Eosinophils % 0.2 % (0.00-10.9); Hematocrit 26.9 VOL% (35.7-47.0); Immature Granulocytes % 0.6 %; Immature Granulocytes Absolute 0.07 #; Lymphocytes # 1.5 10*3/uL (1.4-4.0); Mean Corpuscular HGB Conc 33.5 GM/DL (32-36); Mean Corpuscular Volume 85.1 FL (87-102); Mean Platelet Volume 11.4 FL (9.6-12.0); Monocytes % 5.2 % (1.7-12.7); Neutrophils % 81.9 % (38.7-73.9); Platelet Count 219 T/CUMM (130-400); Red Blood Count 3.16 MC/CUMM (3.8-5.5); White Blood Count 12.4 T/CUMM (4-12)
[2019-12-05] MEDS: INSULIN REGULAR 100 UNIT/ML SUBCUT SCH ×4 (05:50→23:31)
[2019-12-05] MEDS ORDERED: BISACODYL 5 MG TABLET PO ONE (08:03)
[2019-12-05] MEDS ORDERED: POLYETHYLENE GLYCOL POWDER 255 GM BOTTLE PO ONE (08:03)
[2019-12-05] MEDS ORDERED: propofoL 200 MG/20 ML VIAL IV ONE (09:00)
[2019-12-05] MEDS ORDERED: LIDOCAINE 2% 5 ML VIAL ONE (09:00)
[2019-12-05] MEDS: SODIUM CHLORIDE 0.9% 1,000 ML IV SCH ×2 (10:09→11:36)
[2019-12-05] MEDS: POLYETHYLENE GLYCOL POWDER 17 GM PACK PO SCH (10:14)
[2019-12-05] MEDS: LEVOTHYROXINE 50 MCG TABLET PO SCH (12:29)
[2019-12-05] MEDS: METOPROLOL SUCCINATE XL 100 MG TABLET PO SCH (12:29)
[2019-12-05] MEDS: cloNIDine 0.1 MG TABLET PO SCH ×3 (12:29→22:18)
[2019-12-05] MEDS: PANTOPRAZOLE 40 MG VIAL IV SCH (15:57)
[2019-12-05] MEDS ORDERED: DOXAZOSIN 1 MG TABLET PO SCH (16:46)
[2019-12-05] MEDS: diphenhydrAMINE CAP 25 MG CAPSULE PO PRN (22:18)
[2019-12-05] MEDS: LATANOPROST 0.005% OPH SOLN 2.5 ML BOTTLE BOTH EYES SCH (22:20)
[2019-12-06] MEDS: ALBUTEROL/IPRATROPIUM 3 ML NEB RESP TX SCH ×4 (01:32→20:25)
[2019-12-06] MEDS: MORPHINE 4 MG/1 ML VIAL IV PRN (04:23)
[2019-12-06 06:02] LABS: Basophils % 0.1 % (0.0-0.8); Eosinophils # 0.2 10*3/uL (0.0-0.87); Eosinophils % 1.9 % (0.00-10.9); Hematocrit 26.7 VOL% (35.7-47.0); Hemoglobin 8.8 GM/DL (12.0-16.0); Immature Granulocytes % 0.4 %; Immature Granulocytes Absolute 0.04 #; Lymphocytes # 2.5 10*3/uL (1.4-4.0); Lymphocytes % 22.3 % (21.3-54.2); Mean Corpuscular Volume 86.4 FL (87-102); Mean Platelet Volume 11.3 FL (9.6-12.0); Neutrophils % 67.3 % (38.7-73.9); Platelet Count 195 T/CUMM (130-400); Red Blood Count 3.09 MC/CUMM (3.8-5.5); Red Cell Distribution Width 15.3 % (9.3-17.3); White Blood Count 11.1 T/CUMM (4-12)
[2019-12-06] MEDS: INSULIN REGULAR 100 UNIT/ML SUBCUT SCH ×3 (06:15→18:24)
[2019-12-06 06:49] LABS: Calcium 7.8 MG/DL (8.5-10.1)
[2019-12-06] MEDS: SODIUM CHLORIDE 0.9% 1,000 ML IV SCH ×2 (09:28→11:41)
[2019-12-06] MEDS: POLYETHYLENE GLYCOL POWDER 17 GM PACK PO SCH (09:43)
[2019-12-06] MEDS: METOPROLOL SUCCINATE XL 100 MG TABLET PO SCH (10:42)
[2019-12-06] MEDS: LEVOTHYROXINE 50 MCG TABLET PO SCH (10:42)
[2019-12-06] MEDS: cloNIDine 0.1 MG TABLET PO SCH ×3 (10:43→22:02)
[2019-12-06] MEDS: PANTOPRAZOLE 40 MG VIAL IV SCH (15:41)
[2019-12-06] MEDS: diphenhydrAMINE CAP 25 MG CAPSULE PO PRN (22:01)
[2019-12-06] MEDS: DOXAZOSIN 1 MG TABLET PO SCH (22:01)
[2019-12-06] MEDS: PANTOPRAZOLE 40 MG TABLET PO SCH (22:02)
[2019-12-06] MEDS: metroNIDAZOLE 500 MG TABLET PO SCH (22:04)
[2019-12-06] MEDS: LATANOPROST 0.005% OPH SOLN 2.5 ML BOTTLE BOTH EYES SCH (22:08)
[2019-12-07] MEDS: MORPHINE 4 MG/1 ML VIAL IV PRN ×2 (00:22→11:28)
[2019-12-07] MEDS: INSULIN REGULAR 100 UNIT/ML SUBCUT SCH ×5 (01:20→23:39)
[2019-12-07] MEDS: ALBUTEROL/IPRATROPIUM 3 ML NEB RESP TX SCH ×4 (03:17→20:05)
[2019-12-07 06:21] LABS: Basophils % 0.1 % (0.0-0.8); Eosinophils # 0.2 10*3/uL (0.0-0.87); Hematocrit 26.7 VOL% (35.7-47.0); Hemoglobin 8.7 GM/DL (12.0-16.0); Immature Granulocytes % 0.2 %; Immature Granulocytes Absolute 0.02 #; Lymphocytes # 2.6 10*3/uL (1.4-4.0); Mean Corpuscular HGB Conc 32.6 GM/DL (32-36); Mean Corpuscular Volume 88.1 FL (87-102); Mean Platelet Volume 11.7 FL (9.6-12.0); Monocytes % 7.6 % (1.7-12.7); Neutrophils % 59.1 % (38.7-73.9); Platelet Count 182 T/CUMM (130-400); Red Blood Count 3.03 MC/CUMM (3.8-5.5); Red Cell Distribution Width 15.4 % (9.3-17.3); White Blood Count 8.4 T/CUMM (4-12)
[2019-12-07] MEDS: metroNIDAZOLE 500 MG TABLET PO SCH ×3 (06:30→21:03)
[2019-12-07 06:33] LABS: Calcium 7.5 MG/DL (8.5-10.1); Osmolality,Calculated 302.1 MOS/KG (273-304)
[2019-12-07] MEDS ORDERED: VANCOMYCIN INJ 1,500 MG in SODIUM CHLORIDE 0.9% 500 ML IV ONE (09:00)
[2019-12-07] MEDS ORDERED: LEVOFLOXACIN 500 MG TABLET PO ONE (09:00)
[2019-12-07] MEDS: POLYETHYLENE GLYCOL POWDER 17 GM PACK PO SCH (09:28)
[2019-12-07] MEDS: cloNIDine 0.1 MG TABLET PO SCH ×3 (09:28→21:03)
[2019-12-07] MEDS: LEVOTHYROXINE 50 MCG TABLET PO SCH (09:28)
[2019-12-07] MEDS: PANTOPRAZOLE 40 MG TABLET PO SCH ×2 (09:28→21:03)
[2019-12-07] MEDS: METOPROLOL SUCCINATE XL 100 MG TABLET PO SCH (09:28)
[2019-12-07] MEDS: SODIUM CHLORIDE 0.9% 1,000 ML IV SCH ×2 (10:05→18:18)
[2019-12-07] MEDS ORDERED: SODIUM CHLORIDE 0.9% 1,000 ML IV PRN (12:45)
[2019-12-07 20:02] LABS: Hematocrit 34.3 VOL% (35.7-47.0); Hemoglobin 10.8 GM/DL (12.0-16.0)
[2019-12-07] MEDS: LATANOPROST 0.005% OPH SOLN 2.5 ML BOTTLE BOTH EYES SCH (21:03)
[2019-12-07] MEDS: DOXAZOSIN 1 MG TABLET PO SCH (21:03)
[2019-12-08] MEDS: ALBUTEROL/IPRATROPIUM 3 ML NEB RESP TX SCH ×4 (01:10→19:45)
[2019-12-08 05:17] LABS: Basophils % 0.1 % (0.0-0.8); Eosinophils # 0.1 10*3/uL (0.0-0.87); Eosinophils # 0.2 10*3/uL (0.0-0.87); Eosinophils % 1.7 % (0.00-10.9); Eosinophils % 1.8 % (0.00-10.9); Hematocrit 29.6 VOL% (35.7-47.0); Hematocrit 29.8 VOL% (35.7-47.0); Hemoglobin 9.7 GM/DL (12.0-16.0); Hemoglobin 9.8 GM/DL (12.0-16.0); Immature Granulocytes % 0.3 %; Immature Granulocytes % 0.4 %; Immature Granulocytes Absolute 0.02 #; Immature Granulocytes Absolute 0.03 #; Lymphocytes # 1.8 10*3/uL (1.4-4.0); Lymphocytes # 1.9 10*3/uL (1.4-4.0); Lymphocytes % 22.9 % (21.3-54.2); Lymphocytes % 23.3 % (21.3-54.2); Mean Corpuscular HGB Conc 32.8 GM/DL (32-36); Mean Corpuscular HGB Conc 32.9 GM/DL (32-36); Mean Corpuscular Volume 86.6 FL (87-102); Mean Corpuscular Volume 88.6 FL (87-102); Mean Platelet Volume 11.6 FL (9.6-12.0); Mean Platelet Volume 11.7 FL (9.6-12.0); Monocytes % 7.3 % (1.7-12.7); Monocytes % 7.4 % (1.7-12.7); Neutrophils % 67.7 % (38.7-73.9); Platelet Count 160 T/CUMM (130-400); Platelet Count 162 T/CUMM (130-400); Red Blood Count 3.34 MC/CUMM (3.8-5.5); Red Blood Count 3.44 MC/CUMM (3.8-5.5); White Blood Count 7.8 T/CUMM (4-12); White Blood Count 8.2 T/CUMM (4-12)
[2019-12-08] MEDS: metroNIDAZOLE 500 MG TABLET PO SCH ×3 (05:33→21:08)
[2019-12-08] MEDS: INSULIN REGULAR 100 UNIT/ML SUBCUT SCH ×3 (05:34→17:12)
[2019-12-08 05:50] LABS: Calcium 7.9 MG/DL (8.5-10.1); Osmolality,Calculated 296.3 MOS/KG (273-304)
[2019-12-08 05:53] LABS: % Iron Saturation 47.5 % (18-50)
[2019-12-08 06:13] LABS: Folate 6.5 NG/ML (5.4-24.0)
[2019-12-08 06:54] LABS: Sedimentation Rate-Westergren 51 MM/HR (0-30)
[2019-12-08] MEDS: METOPROLOL SUCCINATE XL 100 MG TABLET PO SCH (08:52)
[2019-12-08] MEDS: LEVOFLOXACIN 250 MG TABLET PO SCH (08:52)
[2019-12-08] MEDS: PANTOPRAZOLE 40 MG TABLET PO SCH ×2 (08:52→21:08)
[2019-12-08] MEDS: cloNIDine 0.1 MG TABLET PO SCH ×3 (08:52→21:08)
[2019-12-08] MEDS: LEVOTHYROXINE 50 MCG TABLET PO SCH (08:52)
[2019-12-08] MEDS: POLYETHYLENE GLYCOL POWDER 17 GM PACK PO SCH (08:52)
[2019-12-08] MEDS: SODIUM CHLORIDE 0.9% 1,000 ML IV SCH ×2 (08:55→13:45)
[2019-12-08] MEDS ORDERED: DOXAZOSIN 1 MG TABLET PO SCH (10:35)
[2019-12-08] MEDS: CHOLECALCIFEROL 1,000 UNIT TABLET PO SCH (12:19)
[2019-12-08] MEDS: LATANOPROST 0.005% OPH SOLN 2.5 ML BOTTLE BOTH EYES SCH (21:09)
[2019-12-09] MEDS: ALBUTEROL/IPRATROPIUM 3 ML NEB RESP TX SCH ×3 (00:15→13:49)
[2019-12-09] MEDS: INSULIN REGULAR 100 UNIT/ML SUBCUT SCH ×4 (00:32→17:41)
[2019-12-09] MEDS: metroNIDAZOLE 500 MG TABLET PO SCH ×2 (05:52→15:34)
[2019-12-09 06:37] LABS: Basophils % 0.1 % (0.0-0.8); Eosinophils # 0.1 10*3/uL (0.0-0.87); Hematocrit 29.4 VOL% (35.7-47.0); Hemoglobin 9.6 GM/DL (12.0-16.0); Immature Granulocytes % 0.3 %; Immature Granulocytes Absolute 0.02 #; Lymphocytes # 1.7 10*3/uL (1.4-4.0); Lymphocytes % 24.4 % (21.3-54.2); Mean Corpuscular HGB Conc 32.7 GM/DL (32-36); Mean Platelet Volume 11.6 FL (9.6-12.0); Monocytes % 8.9 % (1.7-12.7); Neutrophils % 64.3 % (38.7-73.9); Platelet Count 146 T/CUMM (130-400); Red Blood Count 3.38 MC/CUMM (3.8-5.5); Red Cell Distribution Width 15.1 % (9.3-17.3); White Blood Count 6.8 T/CUMM (4-12)
[2019-12-09 06:43] LABS: Osmolality,Calculated 293.4 MOS/KG (273-304)
[2019-12-09] MEDS: PANTOPRAZOLE 40 MG TABLET PO SCH (09:34)
[2019-12-09] MEDS: POLYETHYLENE GLYCOL POWDER 17 GM PACK PO SCH (09:34)
[2019-12-09] MEDS: LEVOFLOXACIN 250 MG TABLET PO SCH (09:34)
[2019-12-09] MEDS: cloNIDine 0.1 MG TABLET PO SCH ×2 (09:34→15:34)
[2019-12-09] MEDS: METOPROLOL SUCCINATE XL 100 MG TABLET PO SCH (09:35)
[2019-12-09] MEDS: CHOLECALCIFEROL 1,000 UNIT TABLET PO SCH (09:35)
[2019-12-09] MEDS: LEVOTHYROXINE 50 MCG TABLET PO SCH (09:35)
[2019-12-09] MEDS: BISACODYL 5 MG TABLET PO PRN (09:53)
[2019-12-09] MEDS ORDERED: VANCOMYCIN INJ 1,250 MG in SODIUM CHLORIDE 0.9% 250 ML IV SCH (10:00)
[2019-12-09] MEDS: SODIUM CHLORIDE 0.9% 1,000 ML IV SCH ×2 (10:42→16:47)
[2019-12-09 15:44] VITALS: BP 173/72
== END 2019-12-09 18:02 | disposition home health service (06) | DRG 871 ==
LOC: N.ED 12:36 → N.EDINP 16:07 → SUATTDRO 16:07 → SUPCPDRO 16:07 → N.ICU 16:43 → N.TELEN 11-26 16:24
PROVIDERS: ADMIT Family Medicine; ATTEND Internal Medicine